=== PATIENT | male | born 1940 | race Caucasian/White ===

== ENCOUNTER 2022-10-16 13:52 | Emergency (ER) | payer MEDICARE ==
[~2022-10-16] VITALS: Ht 177.8 cm; Wt 111.1 kg
[2022-10-16 13:52] VITALS: BP_SYST 90
[2022-10-16 14:49] LABS: HEMATOCRIT 25.5 % (36-54); HEMOGLOBIN 8.3 g/dL (14.0-18.0); MEAN CORPUSCULAR HEMOGLOBIN 29 pg (27-31); MEAN CORPUSCULAR HGB CONC 33 % (32-36); MEAN CORPUSCULAR VOLUME 88 fL (79.0-98.0); PLATELET COUNT (AUTO) 185 K/uL (130-430); RED BLOOD CELL COUNT(AUTO) 2.91 MIL/uL (4.2-6.2); RED CELL DISTRIBUTION WIDTH 16.4 % (9.0-15.0); WHITE BLOOD COUNT (AUTO) 8.8 K/uL (4.8-10.8)
[2022-10-16 14:57] LABS: PROTHROMBIN TIME 10.7 SECS (9.5-12.5)
[2022-10-16 15:01] LABS: ANION GAP 7 (5-15); CALCIUM 8.3 mg/dL (8.4-11.0); CHLORIDE 102 mmol/L (98-107); CREATININE 1.25 mg/dL (0.55-1.30); GLUCOSE 113 mg/dL (70-99); UREA NITROGEN, BLOOD 25 mg/dL (8-21)
[2022-10-16 15:05] LABS: ALANINE AMINOTRANSFERASE 24 U/L (12-78); ALBUMIN 2.5 g/dL (3.4-4.8); ASPARTATE AMINOTRANSFERASE 31 U/L (10-37); TOTAL BILIRUBIN 0.5 mg/dL (0.0-1.0)
[2022-10-16 15:09] LABS: BAND % (MANUAL) 3 % (0-6); BASOPHILS % (MANUAL) 0 % (0-2); EOSINOPHILS % (MANUAL) 6 % (0-7); LYMPHOCYTES % (MANUAL) 14 % (20-46); MONOCYTES % (MANUAL) 13 % (0-11)
[2022-10-16] MEDS ORDERED: iohexoL 350 mgI/mL, 100 ML INFUS..BTL IV ONE (15:52)
[2022-10-16] MEDS ORDERED: ALLO100T PO (16:57)
[2022-10-16] MEDS ORDERED: LOSA100T23 PO (16:57)
[2022-10-16] MEDS ORDERED: PANT40TA45 PO (16:57)
[2022-10-16] MEDS ORDERED: MONT-40 PO (16:57)
[2022-10-16] MEDS ORDERED: HYDR-3925 PO (16:57)
[2022-10-16] MEDS ORDERED: SERT-436 PO (16:57)
[2022-10-16] MEDS ORDERED: SIMV-46 PO (16:57)
[2022-10-16 19:11] VITALS: BP_SYST 90
== END 2022-10-16 19:11 | disposition home or self-care (01) ==
LOC: SED 13:52
DX: D64.9 Anemia, unspecified (principal); R06.02 Shortness of breath; R05.9 Cough, unspecified; Z79.899 Other long term (current) drug therapy
CPT/HCPCS: 99285; 71275; 71045; 85027; 80053; 82550; 83880; 85007; 85610; 85730; 36415; 93005; 36600; 82803; 76376; Q9967